=== PATIENT | female | born 1985 | race African-American/Black ===

== ENCOUNTER 2024-11-29 01:27 | Inpatient (IN) | payer OTHER ==
[~2024-11-29] VITALS: Ht 162.6 cm; Wt 76.2 kg
[2024-11-29 01:44] VITALS: O2SAT 98
[2024-11-29 02:23] LABS: BASOPHILS % 0.3 % (0.0-2.0); EOSINOPHILS % 0.5 % (0.0-5.0); HEMATOCRIT. 48.5 % (36.0-48.0); HEMOGLOBIN. 16.3 g/dL (12.0-16.0); LYMPHOCYTES % 7.4 % (20.0-50.0); MEAN PLATELET VOLUME 8.5 fl (7.4-10.4); MONOCYTES % 3.0 % (2.0-8.0); NEUTROPHILS % 88.8 % (40.0-76.0); PLATELET 291 x1000/uL (130-400); RED BLOOD CELL COUNT 5.46 mill/uL (4.2-5.4); RED CELL DISTRIBUTION WIDTH 14.0 % (11.6-14.6)
[2024-11-29] MEDS: ONDANSETRON HCL 4MG/2ML INJ IV ONE (02:33)
[2024-11-29] MEDS: MORPHINE SULFATE 4 MG/ML INJ (FOR IV/IM USE) IV ONE (02:34)
[2024-11-29] MEDS: SODIUM CHLORIDE 0.9% 500 ML IV ONE (02:34)
[2024-11-29 02:45] LABS: HCG SCREEN NEGATIVE
[2024-11-29 02:47] LABS: CREATININE 1.1 mg/dL (0.6-1.0)
[2024-11-29 02:48] LABS: UREA NITROGEN BLOOD 11 mg/dL (9-23)
[2024-11-29 02:49] LABS: ASPARTATE AMINOTRANSFERASE 24 IU/L (<34)
[2024-11-29 02:50] LABS: BILIRUBIN DIRECT 0.2 mg/dL (<=3.0); BILIRUBIN TOTAL 0.9 mg/dL (0.1-1.0); PROTEIN TOTAL 8.3 g/dL (6.0-8.3)
[2024-11-29 04:37] LABS: CLARITY URINE TURBID (CLEAR); COLOR URINE DARK YELLOW (YELLOW); GLUCOSE URINE NEGATIVE (NEGATIVE); KETONES URINE TRACE (NEGATIVE); LEUKOCYTE ESTERASE URINE NEGATIVE (NEGATIVE); NITRITE URINE NEGATIVE (NEGATIVE); OCCULT BLOOD URINE NEGATIVE (NEGATIVE); PH URINE 5.5 (4.5-8.0); PROTEIN URINE 1+ (NEGATIVE); SPECIFIC GRAVITY URINE 1.032 (1.005-1.030); UROBILINOGEN URINE 1.0 E.U./dL (0.2-1.0)
[2024-11-29] MEDS: KETOROLAC 15MG/ML VIAL IV ONE (05:19)
[2024-11-29 05:31] LABS: AMORPHOUS SEDIMENT URINE 4+ /lpf; BACTERIA URINE 1+; RBC URINE NONE SEEN /hpf (0-2); SQUAMOUS EPITHELIAL CELL URINE NONE SEEN /lpf (RARE/1+); WBC URINE NONE SEEN /hpf (0-2)
[2024-11-29 08:00] VITALS: BP 126/78; PULSE 77; RESP 18; TEMP 36.8; O2SAT 99
[2024-11-29] MEDS ORDERED: CLONIDINE 0.1MG TABLET PO PRN (10:15)
[2024-11-29] MEDS ORDERED: ACETAMINOPHEN 325MG TABLET PO PRN (10:15)
[2024-11-29] MEDS ORDERED: MAGNESIUM/ALUMINUM HYDROXIDE/SIMETHICONE 30ML UDC PO PRN (10:15)
[2024-11-29] MEDS ORDERED: NALOXONE HCL 0.4MG/ML VIAL IV PRN (10:15)
[2024-11-29] MEDS: PANTOPRAZOLE SODIUM 40 MG/VIAL IV SCH (11:05)
[2024-11-29] MEDS: HYDROCODONE/ACETAMINOPHEN 5/325MG TABLET PO PRN (11:05)
[2024-11-29] MEDS: ENOXAPARIN 40MG/0.4ML SYR SUBCUT SCH (11:05)
[2024-11-29] MEDS: ONDANSETRON HCL 4MG/2ML INJ IV PRN (11:25)
[2024-11-29 12:00] VITALS: BP 119/73; PULSE 69; RESP 18; TEMP 37.4; O2SAT 98
[2024-11-29 12:28] VITALS: BP 129/82; PULSE 87; RESP 19; TEMP 36.696
[2024-11-29] MEDS: PIPERACILLIN/TAZO 3.375G/50ML 50 ML IV SCH (15:03)
[2024-11-29] MEDS: SODIUM CHLORIDE 0.9% 1,000 ML IV SCH (15:03)
[2024-11-29 20:00] VITALS: BP 118/70; PULSE 60; RESP 18; TEMP 36.6; O2SAT 98
[2024-11-29] MEDS ORDERED: ZOLPIDEM TARTRATE 5MG TABLET PO PRN (21:00)
[2024-11-29] MEDS ORDERED: MORPHINE SULFATE 2 MG/ML INJ (NOT FOR IM USE) IV PRN (23:00)
[2024-11-30] VITALS: BP 120/60; PULSE 72; RESP 18; TEMP 36.5; O2SAT 96
[2024-11-30] MEDS: KETOROLAC 15MG/ML VIAL IV PRN (00:22)
[2024-11-30 04:00] VITALS: BP 117/71; PULSE 67; RESP 18; TEMP 36.6; O2SAT 97
[2024-11-30 05:32] LABS: CREATININE 1.0 mg/dL (0.6-1.0); UREA NITROGEN BLOOD 15 mg/dL (9-23)
[2024-11-30 06:27] LABS: BASOPHILS % 0.2 % (0.0-2.0); EOSINOPHILS % 0.7 % (0.0-5.0); HEMATOCRIT. 43.6 % (36.0-48.0); HEMOGLOBIN. 14.4 g/dL (12.0-16.0); LYMPHOCYTES % 16.4 % (20.0-50.0); MEAN PLATELET VOLUME 9.0 fl (7.4-10.4); MONOCYTES % 7.7 % (2.0-8.0); NEUTROPHILS % 75.0 % (40.0-76.0); PLATELET 263 x1000/uL (130-400); RED BLOOD CELL COUNT 4.87 mill/uL (4.2-5.4); RED CELL DISTRIBUTION WIDTH 13.7 % (11.6-14.6)
[2024-11-30 08:15] VITALS: BP 116/82; PULSE 90; RESP 18; TEMP 36.4; O2SAT 96
[2024-11-30 11:11] LABS: *AMPHETAMINES SCREEN URINE NEGATIVE (NEGATIVE); *BARBITURATES SCREEN URINE NEGATIVE (NEGATIVE); *BENZODIAZEPINES SCREEN URINE NEGATIVE (NEGATIVE); *COCAINE SCREEN URINE NEGATIVE (NEGATIVE); METHADONE URINE SCREEN NEGATIVE (NEGATIVE)
[2024-11-30 11:13] LABS: CANNABINOID URINE SCREEN PRESUMPTIVE POSITIVE (NEGATIVE); ECSTASY MDMA SCREEN URINE NEGATIVE (NEGATIVE); OPIATES URINE SCREEN PRESUMPTIVE POSITIVE (NEGATIVE); PHENCYCLIDINE URINE SCREEN NEGATIVE (NEGATIVE)
[2024-11-30 15:30] VITALS: BP 118/58; PULSE 62; RESP 16; TEMP 36.8; O2SAT 98
[2024-11-30 20:00] VITALS: BP 112/71; PULSE 73; RESP 18; TEMP 36.7; O2SAT 98
[2024-12-01] VITALS: BP 103/67; PULSE 97; RESP 18; TEMP 36.3; O2SAT 98
[2024-12-01 04:00] VITALS: BP 101/63; PULSE 85; RESP 17; TEMP 36.4; O2SAT 98
[2024-12-01 08:00] VITALS: BP 122/85; PULSE 61; RESP 18; TEMP 36.4; O2SAT 100
[2024-12-01 11:06] LABS: BASOPHILS % 0.7 % (0.0-2.0); EOSINOPHILS % 2.6 % (0.0-5.0); HEMATOCRIT. 41.6 % (36.0-48.0); HEMOGLOBIN. 14.0 g/dL (12.0-16.0); LYMPHOCYTES % 29.6 % (20.0-50.0); MEAN PLATELET VOLUME 8.8 fl (7.4-10.4); MONOCYTES % 6.5 % (2.0-8.0); NEUTROPHILS % 60.6 % (40.0-76.0); PLATELET 261 x1000/uL (130-400); RED BLOOD CELL COUNT 4.60 mill/uL (4.2-5.4); RED CELL DISTRIBUTION WIDTH 13.9 % (11.6-14.6)
[2024-12-01 11:37] LABS: CREATININE 1.1 mg/dL (0.6-1.0)
[2024-12-01 11:38] LABS: UREA NITROGEN BLOOD 11 mg/dL (9-23)
[2024-12-01 12:00] VITALS: BP 118/79; PULSE 61; RESP 18; TEMP 36.6; O2SAT 100
[2024-12-01 16:00] VITALS: BP 108/66; PULSE 68; RESP 18; TEMP 37.9; O2SAT 98
[2024-12-01 20:00] VITALS: BP 128/73; PULSE 70; RESP 16; TEMP 36.5; O2SAT 95
[2024-12-02 04:00] VITALS: BP 113/72; PULSE 60; RESP 19; TEMP 36.5; O2SAT 99
[2024-12-02 05:49] LABS: CREATININE 1.1 mg/dL (0.6-1.0); UREA NITROGEN BLOOD 11 mg/dL (9-23)
[2024-12-02 06:39] LABS: BASOPHILS % 0.5 % (0.0-2.0); EOSINOPHILS % 2.1 % (0.0-5.0); HEMATOCRIT. 38.2 % (36.0-48.0); HEMOGLOBIN. 12.9 g/dL (12.0-16.0); LYMPHOCYTES % 37.2 % (20.0-50.0); MEAN PLATELET VOLUME 9.1 fl (7.4-10.4); MONOCYTES % 8.1 % (2.0-8.0); NEUTROPHILS % 52.1 % (40.0-76.0); PLATELET 206 x1000/uL (130-400); RED BLOOD CELL COUNT 4.29 mill/uL (4.2-5.4); RED CELL DISTRIBUTION WIDTH 13.3 % (11.6-14.6)
[2024-12-02 08:00] VITALS: BP 113/75; PULSE 60; RESP 16; TEMP 36.5; O2SAT 68
[2024-12-02 12:00] VITALS: BP 121/75; PULSE 78; RESP 17; TEMP 36.5
[2024-12-02 13:55] VITALS: BP 123/73; PULSE 78; RESP 17; TEMP 97.7
== END 2024-12-02 15:30 | disposition home or self-care (01) | DRG 390 ==
LOC: ER 02:15 → 7EST 04:22 → EDBEDREQ 04:52 → EDBEDREQTM 04:52 → ENRESERV 07:11
PROVIDERS: ADMIT Internal Medicine; ATTEND Internal Medicine
DX: K56.609 Unspecified intestinal obstruction, unspecified as to partial versus complete obstruction (principal); Z93.3 Colostomy status
CPT/HCPCS: 36415; 74018; 74176; 80048; 80076; 80305; 81003; 84443; 84703; 85025; 93970; 96361; 96374; 96375; 99285; J1650; J1885; J2270; J2405; J2470; J2543; J7030